=== PATIENT | male | born 1945 | race Caucasian/White ===

== ENCOUNTER 2018-09-26 15:49 | Emergency (ER) | payer OTHER ==
[2018-09-26] MEDS: DIPHTH/TET/ACEL PERTUSS (ADULT) 0.5 ML VIAL IM* (17:09)
[2018-09-26] MEDS: BACITRACIN 0.9 GM OINT TOP (17:09)
== END 2018-09-26 17:43 | disposition home or self-care (01) ==
LOC: FTE 15:49
DX: S41.111A Laceration without foreign body of right upper arm, initial encounter (principal); S61.431A Puncture wound without foreign body of right hand, initial encounter; I10 Essential (primary) hypertension; W61.91XA Bitten by other birds, initial encounter; Y92.9 Unspecified place or not applicable; Z23 Encounter for immunization
CPT/HCPCS: 90715; 96372; 99283-25